=== PATIENT | male | born 1970 | race Caucasian/White ===

== ENCOUNTER 2021-04-03 19:26 | Emergency (ER) | payer MEDICAID ==
[~2021-04-03] VITALS: Ht 172.7 cm; Wt 91.0 kg
[2021-04-04] MEDS ORDERED: IBUPROFEN 600MG TABLET PO ONE (01:00)
[2021-04-04] MEDS ORDERED: TETANUS, DIPHTHERIA, PERTUSSIS VAC/PF 0.5ML (>7YR OLD) IM ONE (01:00)
[2021-04-04] MEDS ORDERED: BACITRACIN ZINC OINT UDPKT TOP ONE (01:00)
[2021-04-04] MEDS ORDERED: IBUP-2029 PO (01:13)
[2021-04-04] MEDS ORDERED: BO1 TP (01:13)
[2021-04-04 01:54] VITALS: BP 126/54
== END 2021-04-04 01:55 | disposition home or self-care (01) ==
LOC: ER 19:26
DX: T23.272A Burn of second degree of left wrist, initial encounter (principal); X12.XXXA Contact with other hot fluids, initial encounter; Y93.89 Activity, other specified; Y92.9 Unspecified place or not applicable
CPT/HCPCS: 90471; 99283